=== PATIENT | female | born 1990 ===

== ENCOUNTER → 2019-11-10 | Outpatient (CLI) | payer SELFPAY | LOC: LAB SHORT 14:04 → LAB 14:04 | DX: Z11.3 Encounter for screening for infections with a predominantly sexual mode of transmission (principal) | CPT/HCPCS: 86592 ==

== ENCOUNTER → 2021-01-10 | Outpatient (CLI) | payer SELFPAY | END | disposition home or self-care (01) | LOC: LAB SHORT 17:17 | DX: Z11.3 Encounter for screening for infections with a predominantly sexual mode of transmission (principal) | CPT/HCPCS: 86592 ==